=== PATIENT | male | born 1985 | race Caucasian/White ===

== ENCOUNTER 2017-07-25 14:28 | Emergency (ER) | payer MEDICAID ==
[~2017-07-25] VITALS: Ht 198.1 cm; Wt 167.8 kg
[2017-07-25 15:13] LABS: Basophils # (auto) 0.1 uL; Basophils % (auto) 1.4 % (0.0-2.0); Eosinophils # (auto) 0.1 uL; Eosinophils % (auto) 1.2 % (0.0-7.0); Hematocrit 49.3 % (41.0-53.0); Hemoglobin 16.2 g/dL (13.5-17.5); Lymphocytes # (auto) 2.4 uL; Lymphocytes % (auto) 24.8 % (10.0-50.0); Mean Corpuscular Volume 90.9 fL (80.0-100.0); Monocytes # (auto) 0.5 uL; Monocytes % (auto) 5.2 % (0.0-12.0); Neutrophils # (auto) 6.5 uL; Neutrophils % (auto) 67.4 % (37.0-80.0); Nucleated Red Blood Cells % 0.2 %; Platelet Count (auto) 228 10^3/uL (140-450); Red Blood Cells 5.42 10^6/uL (4.5-5.90); Red Cell Distribution Width 14.7 % (11.8-14.3); White Blood Cell 9.7 10^3/uL (4.4-10.8)
[2017-07-25] MEDS ORDERED: ASPirin 325 MG TAB PO ONE (15:30)
[2017-07-25 15:32] LABS: Albumin 3.8 g/dL (3.4-5.0); Anion Gap 11 (5-15); Blood Urea Nitrogen 11 mg/dL (7-18); Carbon Dioxide 22 mmol/L (21-32); Chloride 107 mmol/L (98-107); Glucose 93 mg/dL (74-106); Potassium 3.6 mmol/L (3.5-5.1); Sodium 140 mmol/L (136-145)
[2017-07-25 15:34] LABS: Alanine Aminotransferase 20 U/L (16-61); Aspartate Aminotransferase 15 U/L (15-37); BUN/Creatinine Ratio 18.3; GFR African American 203 mL/min; GFR Non-African American 168 mL/min
[2017-07-25 15:37] LABS: Alkaline Phosphatase 104 U/L (45-117); Bilirubin, Total 0.7 mg/dL (0.2-1.0); Total Protein 8.4 g/dL (6.4-8.2)
[2017-07-25 17:33] VITALS: BP 166/90
== END 2017-07-25 17:07 | disposition home or self-care (01) ==
LOC: ER 14:28
DX: R07.89 Other chest pain (principal); Z88.0 Allergy status to penicillin
CPT/HCPCS: 36415; 71046; 80053; 84484; 85025; 93005

== ENCOUNTER 2018-05-02 17:38 | Emergency (ER) | payer MEDICAID ==
[~2018-05-02] VITALS: Ht 200.7 cm; Wt 131.5 kg
[2018-05-02 18:11] VITALS: BP 134/78
[2018-05-02] MEDS ORDERED: IBUPROFEN 800 MG TAB PO ONE (22:30)
[2018-05-02] MEDS ORDERED: ACETAMINOPHEN 500 MG TAB PO ONE (22:30)
== END 2018-05-02 23:28 | disposition home or self-care (01) ==
LOC: ER 17:46
DX: M54.5 Low back pain (principal); K59.00 Constipation, unspecified; R51 Headache; F12.10 Cannabis abuse, uncomplicated; Z88.0 Allergy status to penicillin
CPT/HCPCS: 74018